=== PATIENT | female | born 1955 | race Caucasian/White ===

== ENCOUNTER → 2022-04-26 | Outpatient (CLI) | payer BC ==
[~2022-04-26] VITALS: Ht 157 cm; Wt 81.0 kg
[~2022-04-26] MED LIST: REGADENOSON 0.4 MG/5 ML SYR (LEXISCAN) IV ONE
[2022-04-26] MEDS: CATHETER FLUSH 10 ML SYR IVP PRN ×2 (11:11→12:45)
[2022-04-26 12:40] VITALS: BP 145/63
--- NOTE | 2022-04-26 19:19 | STRESS TEST ---
DATE OF SERVICE: 04/26/2022 RESTING AND POST REGADENOSON TECHNETIUM-99M TETROFOSMIN SPECT CT IMAGING ORDERING PHYSICIAN: Dr. Nascimento. PRIMARY PHYSICIAN: Dr. Adarsh Garcia. FINDINGS: Baseline images were carried out after injection of 10.47 mCi technetium-99 tetrofosmin. This was followed by 0.4 mg regadenoson 28.5 mCi of technetium-99m tetrofosmin for stress imaging. The electrocardiogram showed sinus rhythm at baseline. It did not change significantly with regadenoson infusion. The patient tolerated the procedure well. Review of images at rest and following stress does not indicate any significant perfusion defect consistent with myocardial ischemia or infarction. Gated images show normal global left ventricular systolic function, normal regional wall motion. Left ventricular ejection fraction is calculated to be 72%. CONCLUSIONS: 1. No evidence of any significant myocardial ischemia or infarction on this study. 2. Normal regional wall motion. 3. Normal global left ventricular systolic function with a calculated ejection fraction of 72%. Job ID: [id number] DocumentID: [id number] Dictated Date: 04/26/2022 16:19:28 Hat Lining Paster Date: 04/26/2022 19:17:00 Dictated By: REA NASCIMENTO MD; IDA; FACP; FACC;
== END ==
LOC: CARD 09:35
PROVIDERS: ATTEND Internal Medicine Cardiovascular Disease
DX: I51.7 Cardiomegaly (principal); I25.10 Atherosclerotic heart disease of native coronary artery without angina pectoris; Z86.73 Personal history of transient ischemic attack (TIA), and cerebral infarction without residual deficits
CPT/HCPCS: 78452; 93017; 93225; 93226; A9502; C8929; 93306